=== PATIENT | female | born 1980 ===

== ENCOUNTER 2017-08-06 10:16 | Emergency (ER) | payer SELFPAY ==
[~2017-08-06] VITALS: Ht 152.4 cm; Wt 100.0 kg
[2017-08-06 10:18] VITALS: BP 125/80; PULSE 80; RESP 18; TEMP 98.7; O2SAT 100
[2017-08-06] MEDS ORDERED: LIDOCAINE HCL 1% 50 ML VIAL INFIL ONE (10:45)
[2017-08-06] MEDS ORDERED: IBUP1TAB7 PO (11:38)
--- NOTE | 2017-08-06 11:39 | PD ---
HPI Chief Complaint: Laceration/Skin Injury Time Seen by Provider: 11:37 Travel History International Travel<30 days: No Contact w/Intl Traveler<30days: No Traveled to known affect area: No History of Present Illness HPI 36-year-old female presents to the emergency department complaint of a laceration to the dorsal aspect of the left hand after cutting it on a piece of glass this morning while cleaning. Patient up-to-date on her tetanus vaccination. Denies paresthesias, loss of sensation, decreased range of motion , decreased strength to the affected extremity. Blood pressure to control bleeding. Has not taken any medications or tried any other treatments to alleviate her symptoms. Rates pain 6/10. She describes it as a throbbing sensation. Has no other medical complaints. Allergies to penicillin. No other modifying factors or associated signs and symptoms. PFSH Past Medical History ?: Not Social History Alcohol Use: No Tobacco Use: No Substance Use: No Allergies-Medications (Allergen,Severity, Reaction): Coded Allergies: Penicillins (Verified Allergy, Unknown, 08/06/17) Reported Meds & Prescriptions Reported Meds & Active Scripts Active Ibuprofen 800 Mg Tab 800 Mg PO Q6HR PRN Review of Systems Except as stated in HPI: all other systems reviewed are Neg Physical Exam Narrative GENERAL: Well-nourished, well-developed black female patient, in no acute distress SKIN: Warm and dry. Dorsal aspect of left hand over approximately the second and third metacarpal region with approximately 2-1/2 cm horseshoe-shaped superficial laceration; bleeding controlled. Left hand with full range of motion and heading saw operator strength; sensory intact McConn 2+ radial pulse. HEAD: Atraumatic. Normocephalic. EYES: Pupils equal and round. No scleral icterus. No injection or drainage. ENT: Mucosa pink and moist. Airway patent. NECK: Trachea midline. CARDIOVASCULAR: Regular rate. RESPIRATORY: No accessory muscle use. GASTROINTESTINAL: Round. MUSCULOSKELETAL: No obvious deformities. No clubbing. No cyanosis. No edema. NEUROLOGICAL: Awake and alert. Oriented 3. No obvious cranial nerve deficits. Motor grossly within normal limits. Normal speech. PSYCHIATRIC: Appropriate mood and affect; insight and judgment normal. Data Data Last Documented VS Vital Signs Date Time Temp Pulse Resp B/P (MAP) Pulse Ox O2 Delivery O2 Flow Rate FiO2 08/06/17 10:18 98.7 80 18 125/80 (95) 100 Room Air Orders Orders Lidocaine 1% Inj (50 Ml) (Xylocaine 1% I (08/06/17 10:45) Ed Discharge Order (08/06/17 11:39) Wound Care (08/06/17 11:39) MDM Medical Decision Making Medical Screen Exam Complete: Yes Emergency Medical Condition: Yes Medical Record Reviewed: Yes Differential Diagnosis Laceration, contusion, skin tear Narrative Course 36-year-old female with laceration to the dorsal aspect of the left hand. See my procedure note for laceration repair. Tetanus up-to-date. Ibuprofen prescribed for home. Instructed patient to return to the emergency department or follow-up with primary care provider in 7-10 days for suture removal. Care for stitches discussed and included an discharge instructions. Instructed patient to follow up with primary care provider. Patient verbalizes understanding and agreement with treatment plan. Patient is medically cleared and stable for discharge. Discussed reasons to return to the emergency department. Patient agrees with treatment plan. The patients vital signs are stable and the patient is stable for outpatient follow-up and treatment. Patient discharged home, stable and in no acute distress. Procedures Procedure Narrative LACERATION LOCATION: Dorsal aspect of left hand located over the area of the second and third metacarpal LENGTH: 2-1/2 [id number] NUMBER OF STITCHES/ROCIO: 6 simple interrupted sutures REPAIR: The area of the laceration was prepped with Betadine and sterilely draped. The laceration was infiltrated with 1% lidocaine. The wound was copiously irrigated and explored without evidence of foreign body, tendon injury or neurovascular injury. The wound was closed using 4-0 Prolene. This was a single layer repair. A sterile dressing was applied. The patient was advised to keep the dressing clean and dry. Patient tolerated the procedure well. Diagnosis Primary Impression: Laceration of left hand Qualified Codes: S61.412A - Laceration without foreign body of left hand, initial encounter Referrals: [facility] Primary Care Physician Patient Instructions: Care For Your Stitches (ED), General Instructions, Laceration (ED) Additional Instructions: Keep area clean and dry Limit left hand activity to decrease risk of sutures coming undone done Ibuprofen or Tylenol as directed and as needed for pain and inflammation Ice pack to area as needed to decrease pain Return to the emergency department in 7-10 days for suture removal Follow up with primary care provider within 2-4 days Return to the emergency department immediately with worsening of symptoms, particularly if reddened streaks up or down the affected extremity from the suture site, fever, numbness/tingling in the affected extremity, loss of sensation in the affected extremity, severe swelling of the affected Med/Other Pt SpecificInfo: Prescription(s) given Scripts Ibuprofen (Ibuprofen) 800 Mg Tab 800 MG PO Q6HR Y for PAIN, #30 TAB 0 Refills Prov: Mery Mcnair 08/06/17 Disposition: 01 DISCHARGE HOME Condition: Stable Mery Mcnair Aug 06, 2017 11:39
== END 2017-08-06 12:19 | disposition home or self-care (01) ==
LOC: NEPD 10:16
DX: S61.412A Laceration without foreign body of left hand, initial encounter (principal); W25.XXXA Contact with sharp glass, initial encounter; Z88.0 Allergy status to penicillin
CPT/HCPCS: 12001

== ENCOUNTER 2017-08-15 16:08 | Emergency (ER) | payer SELFPAY ==
[~2017-08-15] VITALS: Ht 152.4 cm; Wt 109.6 kg
[~2017-08-15 16:08] MED LIST: IBUP1TAB7 PO
[2017-08-15 16:10] VITALS: BP 117/66; PULSE 74; RESP 16; TEMP 98.7; O2SAT 100
--- NOTE | 2017-08-15 16:56 | PD ---
HPI Chief Complaint: Wound/Suture/Staple Re-Check Time Seen by Provider: 16:48 Travel History International Travel<30 days: No Contact w/Intl Traveler<30days: No Traveled to known affect area: No History of Present Illness HPI 36-year-old female presents emergency department for suture removal from a laceration to his left hand that occurred on . I saw the patient on the and sutured the laceration closed. She denies fever , vomiting. Denies paresthesias, loss of vision, decreased range of motion, decreased strength to the affected extremity. Denies drainage from the wound site. No known relieving or aggravating factors. Has no other medical complaints. Allergies to penicillin. No other modifying factors or associated signs and symptoms. PFSH Past Medical History ?: Not LMP: 08/12/17 Social History Alcohol Use: No Tobacco Use: No Substance Use: No Allergies-Medications (Allergen,Severity, Reaction): Coded Allergies: Penicillins (Verified Allergy, Unknown, 08/06/17) Reported Meds & Prescriptions Reported Meds & Active Scripts Active Clindamycin (Clindamycin HCl) 150 Mg Cap 300 Mg PO Q8HR 7 Days Ibuprofen 800 Mg Tab 800 Mg PO Q6HR PRN Review of Systems Except as stated in HPI: all other systems reviewed are Neg Physical Exam Narrative GENERAL: Well-nourished, well-developed white female patient, in no acute distress SKIN: Warm and dry. Laceration to the dorsal aspect of left hand well approximated with sutures intact without erythema, edema, drainage. HEAD: Atraumatic. Normocephalic. EYES: Pupils equal and round. No scleral icterus. No injection or drainage. ENT: Mucosa pink and moist. Airway patent. NECK: Trachea midline. CARDIOVASCULAR: Regular rate. RESPIRATORY: No accessory muscle use. GASTROINTESTINAL: Obese. MUSCULOSKELETAL: No obvious deformities. No clubbing. No cyanosis. No edema. NEUROLOGICAL: Awake and alert. Oriented 3. No obvious cranial nerve deficits. Motor grossly within normal limits. Normal speech. PSYCHIATRIC: Appropriate mood and affect; insight and judgment normal. Data Data Last Documented VS Vital Signs Date Time Temp Pulse Resp B/P (MAP) Pulse Ox O2 Delivery O2 Flow Rate FiO2 08/15/17 16:37 16 08/15/17 16:10 98.7 74 117/66 (83) 100 Orders Orders Ed Discharge Order (08/15/17 16:57) MDM Medical Decision Making Medical Screen Exam Complete: Yes Emergency Medical Condition: Yes Medical Record Reviewed: Yes Differential Diagnosis Wound recheck, suture removal, medical clearanceb Narrative Course 36-year-old female presents for removal of sutures to the left hand. The laceration is well approximated and there are no signs of infection. Sutures removed. Patient tolerated well. 1706: After the sutures removed the patient wanted me to come back into the room so she could show me an area of the laceration that she does not have past coming from it. The area of concern like it may have been pulled open or a scab was removed by the patient and there is a minimal amount of cream colored drainage. I Do not feel it is infected. The patient is concerned of infection and is requesting antibiotics. Clindamycin prescribed for home. Instructed patient to follow up with primary care provider. Patient verbalizes understanding and agreement with treatment plan. Patient is medically cleared and stable for discharge. Discussed reasons to return to the emergency department. Patient agrees with treatment plan. The patients vital signs are stable and the patient is stable for outpatient follow-up and treatment. Patient discharged home, stable and in no acute distress. Diagnosis Primary Impression: Encounter for removal of sutures Referrals: [facility] Primary Care Physician Patient Instructions: General Instructions, Stitches Removal (ED) Additional Instructions: Vaseline or Aquaphor to keep very moist and decrease scarring Follow-up with primary care provider Return to the emergency department immediately with worsening of symptoms Med/Other Pt SpecificInfo: Prescription(s) given Scripts Clindamycin (Clindamycin) 150 Mg Cap 300 MG PO Q8HR for Infection for 7 Days, CAP 0 Refills Prov: Mery Mcnair 08/15/17 Disposition: 01 DISCHARGE HOME Condition: Stable Mery Mcnair Aug 15, 2017 16:56
[2017-08-15] MEDS ORDERED: CLIN150C14 PO (17:05)
== END 2017-08-15 17:13 | disposition home or self-care (01) ==
LOC: NEPD 16:08
DX: S61.412D Laceration without foreign body of left hand, subsequent encounter (principal); Z48.02 Encounter for removal of sutures; X58.XXXD Exposure to other specified factors, subsequent encounter
CPT/HCPCS: 99281